=== PATIENT | female | born 1975 | race Caucasian/White ===

== ENCOUNTER 2024-10-10 15:40 | Emergency (ER) | payer OTHER, SELFPAY ==
[2024-10-10 15:44] VITALS: BP 135/78
[2024-10-10 15:55] LABS: Urine Character Clear (Clear)
[2024-10-10 16:05] LABS: Urine Red Blood Cell 0-2 /HPF (0-2); Urine White Cell 0-2 /HPF (0-5)
--- NOTE | 2024-10-10 16:21 | ED.GENMED ---
History of Present Illness
<Celestino Puckett MD, Resident - Last Filed: 10/10/24 23:06>
General
Chief Complaint: Abdominal Pain
Source: patient
Exam Limitations: none
Time Seen by Provider: 10/10/24 16:12
Nursing documentation reviewed up to this point in time: agreed with
History of Present Illness
History of Present Illness:
This is a 49-year-old female with history of chronic sinus congestion uses nasal spray, history of left-sided ovarian cyst s/p resection presented in the emergency department with sudden onset of abdominal pain mostly in the right lower quadrant
however she also complains of some pain in right upper quadrant umbilical area. Pain was 7/10 when it started she utilized 1 tablet of ibuprofen and currently her pain is around 5/10. She denies any nausea, vomiting and diarrhea. Denies any
fevers or chills, chest pain, trouble breathing. Reports that she had similar discomfort last week and she also noticed some frequent urination and decided to consult her family doctor thinking that she might have a UTI. She had a urinalysis which
was apparently clean and her pain also resolved the next morning. Today she experienced similar kind of pain however the pain was also radiating to the right flank and towards the middle of the abdomen which prompted her to visit the emergency
department.
Denies any recent sick contacts, reports she is postmenopausal and her last menstrual period was more than 9 months ago.
Past History
<Celestino Puckett MD, Resident - Last Filed: 10/10/24 23:06>
Past History
ED Past Medical History: None
ED Past Surgical History: Gynecological
Patient has exhibited threatening behavior?: No
Social History
Tobacco: Non-smoker
Alcohol: Occasional
Drug: None
Personal:
Living: with family
Family History
Family History: Other (Noncontributory)
Review of Systems
<Celestino Puckett MD, Resident - Last Filed: 10/10/24 23:06>
Review of Systems
Allergies reviewed?: Yes
All Other Systems: ROS reviewed and negative except as documented in HPI and ROS
Constitutional: Denies fever or chills
EENT: Denies sore throat
Respiratory: Denies cough
Cardiac: Denies chest pain
ABD/GI: Reports abdominal pain; Denies nausea, vomiting or diarrhea
: Denies dysuria
Musculoskeletal: Denies joint pain
Skin: Denies itching
Neurological: Denies dizzy
Endocrine: Denies polyuria
Phy Exam
<Celestino Puckett MD, Resident - Last Filed: 10/10/24 23:06>
General Physical Exam
General Presentation: no apparent distress
General age: appears stated age
General Skin: warm
General Habitus: normal
General Mental: alert
General Hydration: appears well hydrated
Cardiovascular Exam
Cardiovascular Exam: regular rate/rhythm and no murmur
Pulmonary Exam
Pulmonary Exam: lungs clear, no respiratory distress and no cough
Gastrointestinal Exam
Gastrointestinal Exam: soft, no pulsatile mass, non distended, no cva tenderness, no inguinal hernia and tender (Right upper, right lower quadrant, umbilicus region)
Neurological Exam
Neurological Exam: alert and oriented x3
Course
<Celestino Puckett MD, Resident - Last Filed: 10/10/24 23:06>
Orders/Labs/Results
Orders:
Orders
10/10/24 15:50
Urinalysis Reflex To Culture Urgent
Date Specimen was Collected: 10/10/24
Time Specimen was Collected: 15:47
Urine Microscopic Reflex Cult Urgent
Urine Culture Urgent
TRISTEN Source: U
Specimen Description:
Date Specimen was Collected: 10/10/24
Time Specimen was Collected: 15:47
10/10/24 16:43
CMP [Comprehensive Metabolic Panel] Urgent
Complete Blood Count/With Diff Urgent
HCG, Serum Qualitative Screen Urgent
Comment: ADDON
10/10/24 17:02
Add On- LAB Urgent
Tests Added?: qual hcg
CT Abd/pel Without Iv Or Oral Urgent
Comment:
Reason For Exam: Abdominal pain
10/10/24 18:29
US Pelvis Only (non-obstetric) Urgent
Comment:
Reason For Exam: RIGHT SIDED PAIN
10/10/24 21:34
Ketorolac [Toradol] 15 mg IV NOW STA
Abnormal Lab Results
10/10/24 10/10/24
15:50 16:43
RBC 4.13 L 10^6/uL
(4.20-5.40)
Hct 36.3 L %
(37.0-47.0)
Leukocyte Esterase Rfl 1+ A
(Negative)
Urine Bacteria (Reflex) Few A
(Negative)
10/10/24 16:43
10/10/24 16:43
Vital Signs
Initial and Last Documented VS:
Initial Vital Signs
Temp Pulse Resp BP Pulse Ox
98.2 F 80 16 135/78 99
10/10/24 15:44 10/10/24 15:44 10/10/24 15:44 10/10/24 15:44 10/10/24 15:44
Last Documented Vital Signs
Temp Pulse Resp BP Pulse Ox
98.2 F 80 16 121/77 98
10/10/24 15:44 10/10/24 15:44 10/10/24 15:44 10/10/24 19:00 10/10/24 19:00
<Sara Cancino MD - Last Filed: 10/10/24 17:05>
Orders/Labs/Results
Orders:
Orders
10/10/24 15:50
Urinalysis Reflex To Culture Urgent
Date Specimen was Collected: 10/10/24
Time Specimen was Collected: 15:47
Urine Microscopic Reflex Cult Urgent
Urine Culture Urgent
TRISTEN Source: U
Specimen Description:
Date Specimen was Collected: 10/10/24
Time Specimen was Collected: 15:47
10/10/24 16:43
CMP [Comprehensive Metabolic Panel] Urgent
Complete Blood Count/With Diff Urgent
HCG, Serum Qualitative Screen Urgent
Comment: ADDON
10/10/24 17:02
Add On- LAB Urgent
Tests Added?: qual hcg
CT Abd/pel Without Iv Or Oral Urgent
Comment:
Reason For Exam: Abdominal pain
10/10/24 18:29
US Pelvis Only (non-obstetric) Urgent
Comment:
Reason For Exam: RIGHT SIDED PAIN
10/10/24 21:34
Ketorolac [Toradol] 15 mg IV NOW STA
Abnormal Lab Results
10/10/24 10/10/24
15:50 16:43
RBC 4.13 L 10^6/uL
(4.20-5.40)
Hct 36.3 L %
(37.0-47.0)
Leukocyte Esterase Rfl 1+ A
(Negative)
Urine Bacteria (Reflex) Few A
(Negative)
10/10/24 16:43
10/10/24 16:43
Vital Signs
Initial and Last Documented VS:
Initial Vital Signs
Temp Pulse Resp BP Pulse Ox
98.2 F 80 16 135/78 99
10/10/24 15:44 10/10/24 15:44 10/10/24 15:44 10/10/24 15:44 10/10/24 15:44
Last Documented Vital Signs
Temp Pulse Resp BP Pulse Ox
98.2 F 80 16 121/77 98
10/10/24 15:44 10/10/24 15:44 10/10/24 15:44 10/10/24 19:00 10/10/24 19:00
<Celestino Puckett MD, Resident - Last Filed: 10/10/24 23:06>
MDM/Problems Addressed
Differential Diagnosis Includes:
Ovarian cyst vs appendicitis vs kidney stone vs pyelonephritis vs less likely biliary colic vs unlikely ovarian torsion
MDM/Problems Addressed:
Check CBC, CMP, urinalysis
vitals are stable
Check CT Abd/pel w/o contrast
update 5:05
CBC with normal white count and normal hemoglobin, urinalysis with 1+leukocyte Estrace and few urinary bacteria otherwise unremarkable. CMP pending
update:
CMP with normal electrolytes, normal renal functions and liver functions.
Patient awaiting the CAT scan
update 6:20:
CT with No significant acute abnormality identified in the abdomen or pelvis, within the limits of unenhanced CT.. Mild to moderate diffuse colonic stool burden may reflect constipation
will get ABD usg to confirm that she does not have any ovarian pathology.
if normal will discharge the patient for follow-up outpatient with family doctor.
update: 7:30pm ; Patient stable and comfortable, awaiting usg.
update: 8:30pm ; Patient remains comfortable and stable; awaiting usg abd. Patient updated and aware of long wait time.
update: 09:30pm ; Patient reports ongoing pain while awaiting usg, will give 1 dose of toradol 10mg
update 10:50pm ; Normal uterus. Endometrium measures 0.7 cm. Nonenlarged ovaries with normal vascular flow. No dominant cyst or pelvic free fluid.
Long discussion with the patient regarding the imaging studies and blood work which did not show any worrisome concerns. Shared decision was made with the patient for discharge home and follow-up with outpatient family doctor. Return precautions
reviewed.
<Celestino Puckett MD, Resident - Last Filed: 10/10/24 23:06>
*Pulse Oximetry
SaO2: 99
Oxygen Mode of Delivery: Room air
Patient hypoxic: no
*Critical Care Note
Total Time (30-74mins, 75-104mins- exclusive of procedures): Not Applicable
ED Attending Note
<Celestino Puckett MD, Resident - Last Filed: 10/10/24 23:06>
-
Portions of this chart may have been created with voice recognition software.� Occasional wrong word or��sound alike� substitutions may have occurred due to the inherent limitations of voice recognition software.
<Sara Cancino MD - Last Filed: 10/10/24 17:05>
ED Attending Note
Patient seen and examined by attending physician: Yes
I performed a history and physical exam of patient and discussed management with resident, I reviewed resident's note and agree with documented findings and plan of care.: Yes
ED Attending Note:
49-year-old female presents emergency department with complaints of pain that she first noticed earlier in the week. Earlier in the week this was associated with urinary urgency, mild clear vaginal discharge, but no dysuria, hematuria, fever,
chills, nausea, vomiting. Her urinalysis was negative and the discomfort went away. She was feeling perfectly well until this morning at approximately 10 AM when she developed discomfort across her right mid to lower back that radiates around to
the right lower quadrant sometimes to the right mid quadrant. Patient denies nausea, vomiting, diarrhea, fever, chills, chest pain, shortness of breath, or other complaints. She is perimenopausal and her last menstruation was 2 to 3 months ago.
On exam, minimal abdominal tenderness to palpation noted at right mid quadrant, no rebound or guarding. Differential diagnosis includes cholelithiasis, cholecystitis, kidney stone, pyelonephritis, appendicitis, ovarian cyst, for less likely ovarian
torsion. She is extremely well-appearing and declines pain medication at this time. Workup in progress.
Discharge Plan
Departure
Patient Disposition: Home (Routine Discharge)
Date of Disposition: 10/10/24
Time of Disposition: 23:01
Patient with high blood pressure during this ER visit?: Yes
Condition: Good
Discharge Problem:
Gastroenteritis
Instructions: [place] diet, Abdominal Pain
Prescriptions:
No Action
Vitamins
1 tab PO DAILY
Referrals:
Nela Sarmiento MD [Family Provider, Family Practice] - Follow up in 1 week
Activity Restrictions/Additional Instructions:
You were seen at the [facility] emergency department with concerns of abdominal pain. While you were in the emergency department we performed blood work including complete blood count, complete metabolic panel, urinalysis. The blood work
and urinalysis came back unremarkable. We also performed CT of your abdomen and pelvis which did not show any significant acute abnormality in abdominal pelvis. There was mild to moderate diffuse colonic stool burden may reflect constipation. We
also obtained an ultrasound of your pelvis which did not show any abnormality. Normal uterus. Nonenlarged ovaries with normal vascular flow. No dominant cyst or pelvic free fluid. You received 1 dose of IV Toradol for pain. If you develop any
fevers or chills, chest pain, trouble breathing, nausea and vomiting, or any other worrisome concerns please return to the emergency department. Please follow-up with your family doctor outpatient. Advised to use bland diet for few days
instructions attached. You may utilize [id number] antacids. You can also use [id number] Tylenol and ibuprofen for pain.
Interventions
Interventions:
*Risk Screen - Suicide Last Done: 10/10/24 15:44
*General Assessment Last Done: 10/10/24 16:25
*Neglect/Abuse Screening Last Done: 10/10/24 15:44
*ED- Fall Risk Assessment Last Done: 10/10/24 16:25
*ED COVID-19 Vaccine History Last Done: 10/10/24 16:25
DU-Fakkvi-Lswgcmochc Assessment Last Done: 10/10/24 16:25
Discharge Date and Time
Print Language: PERSIAN
[2024-10-10 16:24] VITALS: BP 134/81; BMI 29.1
[2024-10-10 16:52] LABS: Hematocrit 36.3 % (37.0-47.0); Hemoglobin 12.4 g/dL (12.0-16.0); Mean Corp Hgb Conc. 34.2 g/dL (33.0-37.0); Mean Corpuscular Volume 87.9 fL (81.0-99.0); Nucleated Red Blood Cells % 0 %; Platelet Count 266 10^3/uL (130-400); Red Cell Dist. Width 13.1 % (11.5-14.5)
[2024-10-10 17:00] VITALS: BP 135/86
[2024-10-10 17:20] LABS: ALT (SGPT) 15 U/L (0-35); AST (SGOT) 22 U/L (14-36); Albumin 4.1 g/dl (3.5-5.0); Alkaline Phosphatase 43 U/L (38-126); Blood Urea Nitrogen 13 mg/dl (7-17); Calcium 9.0 mg/dl (8.4-10.2); Carbon Dioxide 25 mmol/L (22-30); Chloride 104 mmol/L (98-107); Estimated Creatinine Clearance 80 ml/min; Glucose 90 mg/dl (70-99); Potassium 4.2 mmol/L (3.5-5.1); Sodium 136 mmol/L (135-145); Total Protein 6.6 g/dl (6.3-8.2); eGFR > 60.00
[2024-10-10 17:33] LABS: HCG, Serum Qualitative Screen Negative
[2024-10-10 18:20] VITALS: BP 126/79
[2024-10-10 19:00] VITALS: BP 121/77
[2024-10-10] MEDS: TORADOL 15 MG IV (21:40)
== END 2024-10-10 23:25 | disposition home or self-care (01) ==
LOC: EMR 15:40
PROVIDERS: Student in an Organized Health Care Education/Training Program; EMERGENCY PHYSICIAN Emergency Medicine; FAMILY PHYSICIAN Family Medicine
DX: K52.9 Noninfective gastroenteritis and colitis, unspecified (principal)
CPT/HCPCS: 96374; 99284; 74176; 76856; 80053; 81003; 81015; 84703; 85025; 87086